=== PATIENT | female | born 1985 | race Caucasian/White ===

== ENCOUNTER 2024-02-14 20:39 | Emergency (ER) | payer MEDICAID, SELFPAY ==
[2024-02-14 20:46] VITALS: BP 108/67; PULSE 118; RESP 18; TEMP 36.6; O2SAT 98; BMI 25.8
--- NOTE | 2024-02-14 20:54 | XRR_ITS ---
PROCEDURE INFORMATION: Exam: XR Right Hand Exam date and time: 02/14/2024 9:25 PM Age: 39 years old Clinical indication: Injury or trauma; Other: Dog bite; Hand; Right; Additional info: Injury, dog bite to RT 4th digit TECHNIQUE: Imaging protocol: Radiologic exam of the right hand. Views: 3 or more views. COMPARISON: No relevant prior studies available. FINDINGS: Bones/joints: Acute widely displaced fracture of the proximal phalanx ring finger with approximately 1 cm overriding of the fracture fragments. No evidence of articular step-off. Radiocarpal articulation and carpal rows are grossly intact. Soft tissues: Soft tissue edema of the ring finger. XR/XR hand RT min 3V* [id number] IMPRESSION: 1. Acute widely displaced fracture of the proximal phalanx ring finger with overriding of the fracture fragments.
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
--- NOTE | 2024-02-14 21:17 | PC.NURSE ---
[facility] PD contacted regarding the dog bite. SPoke with Balwinder. Phone number for patients spouse given to officer.
[2024-02-14 21:19] LABS: Basophils # 0.1 10^3/uL (0.0-0.1); Basophils % 0.7 %; Eosinophils # 0.1 10^3/uL (0.0-0.8); Eosinophils % 0.8 %; Hematocrit 42.2 % (36-47); Lymphocytes # 4.7 10^3/uL (0.8-4.8); Lymphocytes % 56.1 %; Mean Corpuscular HGB Conc 34.6 g/dL (30-55); Mean Corpuscular Hemoglobin 32.7 pg (27-33); Mean Corpuscular Volume 94.4 fl (85-98); Mean Platelet Volume 9.3 fL (7.4-10.4); Monocytes # 0.5 10^3/uL (0.2-0.9); Monocytes % 6.3 %; Neutrophils # 2.97 10^3/uL (1.8-7.7); Neutrophils % 35.9 %; Nucleated Red Blood Cells % 0 %; Platelet Count 322 10^3/cmm (157-399); Red Blood Count 4.47 10^6/uL (3.85-5.65); White Blood Count 8.29 10^3/uL (3.29-11.43)
[2024-02-14 21:31] LABS: Alanine Aminotransferase 8 U/L (0-33); Alcohol Level 104 mg/dL (0-10); Alkaline Phosphatase 83 U/L (35-105); Anion Gap 23.2 (5-19); Aspartate Amino Transferase 16 U/L (0-32); Blood Urea Nitrogen 8 mg/dL (6-20); Calcium 9.6 mg/dL (8.5-10.5); Carbon Dioxide 15 mmol/L (22-29); Chloride 100 mmol/L (98-107); Creatinine Clr Calc Pharmacy 104.1369; Globulin 2.6 g/dL (1.3-4.6); Glomerular Filtration Rate 80.3 mL/min (90-130); Glucose 105 mg/dL (65-115); Osmolality Calculated 279 mOsm/kg (285-295); Potassium 3.2 mmol/L (3.5-5.1); Sodium 135 mmol/L (136-145); Total Bilirubin 0.4 mg/dL (0.15-1.2); Total Protein 7.6 g/dL (6.6-8.7)
[2024-02-14 21:55] VITALS: RESP 16
[2024-02-14] MEDS: fentaNYL 50 mcg/mL INJ 2mL IVP (21:55)
[2024-02-14 21:56] VITALS: RESP 18
[2024-02-14] MEDS: ondansetron 2 mg/ML SDV 2 mL 8 MG IVP (21:56)
[2024-02-14] MEDS: sodium chloride 0.9% 1,000 ML 999 ML IV (21:56)
[2024-02-14] MEDS: ampicillin-sulbactam 3 GM in sodium chloride 0.9% (plus) 50 ML IV (21:56)
[2024-02-14] MEDS: HYDROmorphone 1 mg/mL INJ 1 mL IVP ×2 (21:56→22:55)
[2024-02-14 22:08] VITALS: BP 107/69; PULSE 66; RESP 18; O2SAT 97
[2024-02-14] MEDS: tetanus-dipt-pertussis 0.5 mL SDV IM (22:22)
[2024-02-14] MEDS: meropenem 500 MG in sodium chloride 0.9% (plus) 50 ML 100 MG IV (22:25)
[2024-02-14 22:55] VITALS: RESP 16
[2024-02-15 00:09] VITALS: BP 113/73; PULSE 73; RESP 16; O2SAT 99
== END 2024-02-15 00:15 | disposition short-term general hospital (02) ==
PROVIDERS: Nurse Practitioner Family; Emergency Provider Emergency Medicine
DX: S62.614B Displaced fracture of proximal phalanx of right ring finger, initial encounter for open fracture (principal); W54.0XXA Bitten by dog, initial encounter; Y92.828 Other wilderness area as the place of occurrence of the external cause; Z23 Encounter for immunization
CPT/HCPCS: 26725; 73130; 80053; 80307; 85025; 90715; 96365; 96367; 96375; 96376; 99285; J0295; J1170; J2185; J2405; J3010; J7030